=== PATIENT | female | born 1955 | race African-American/Black ===

== ENCOUNTER 2017-04-12 20:30 | Inpatient (IN) | payer MEDICAID ==
[2017-04-12] MEDS ORDERED: Maalox 30 mL Cup PO PRN (21:20)
[2017-04-12] MEDS ORDERED: Magnesium Hydroxide (MOM) 30 mL UDC PO PRN (21:20)
[2017-04-12] MEDS ORDERED: Morphine Sulfate 2 mg/mL 1mL Syr IVP PRN (21:30)
[2017-04-12 21:33] VITALS: BP 155/84
[2017-04-12 21:52] LABS: % BASOPHILS 1.3 % (0.0-2.0); % EOSINOPHILS 3.6 % (0.0-5.0); % LYMPHOCYTES 31.4 % (20.0-50.0); % MONOCYTES 9.4 % (2.0-10.0); % NEUTROPHILS 54.3 % (40.0-80.0); HEMATOCRIT 37.1 % (35.0-45.0); HEMOGLOBIN 12.5 gm/dL (11.7-15.5); MEAN CORPUSCULAR HGB CONC 33.8 pg (28.0-36.0); MEAN PLATELET VOLUME 9.1 fl; NEUTROPHILE ABSOLUTE 3.1 Th/cmm (1.8-8.0); PLATELET COUNT 199 Th/cmm (150-400); RED BLOOD COUNT 4.47 Mil/cmm (3.80-5.10); RED CELL DISTRIBUTION WIDTH 13.7 % (11.5-20.0); WHITE BLOOD COUNT 5.7 Th/cmm (4.8-10.8)
[2017-04-12 22:11] LABS: ALB/GLOB RATIO 1.3 (1.0-1.8); ALKALINE PHOSPHATASE 77 U/L (34-104); ANION GAP 6.5 (7.0-16.0); BILIRUBIN,TOTAL 0.3 mg/dL (0.3-1.0); BUN - UREA NITROGEN 14 mg/dL (7-25); CALCIUM SERUM 9.8 mg/dL (8.6-10.3); CARBON DIOXIDE 30.1 mEq/L (21.0-31.0); CHLORIDE 104 mEq/L (98-107); CHOLESTEROL 171 mg/dL (<200); CREATININE - SERUM 0.7 mg/dL (0.6-1.2); GLUCOSE 102 mg/dL (70-105); POTASSIUM SERUM 3.6 mEq/L (3.5-5.1); SGOT 20 U/L (13-39); SGPT/ALT 22 U/L (7-52); SODIUM SERUM 137 mEq/L (136-145); TRIGLYCERIDES 195 mg/dL (<150)
[2017-04-12 22:57] LABS: URINE BILIRUBIN NEGATIVE (NEGATIVE); URINE BLOOD TRACE (NEGATIVE); URINE COLOR YELLOW; URINE GLUCOSE (UA) NEGATIVE (NEGATIVE); URINE KETONE NEGATIVE (NEGATIVE); URINE PH 5.5; URINE PROTEIN NEGATIVE (NEGATIVE); URINE UROBILINOGEN 0.2 E.U./dL (0.2 - 1.0); URINE WBC 0-2 /hpf (0-5)
[2017-04-12 22:58] LABS: URINE BACTERIA FEW /hpf (NONE SEEN); URINE EPITHELIAL CELLS RARE /lpf (FEW)
[2017-04-12 23:01] LABS: AMPHETAMINE URINE NEGATIVE (NEGATIVE); BARBITURATES URINE NEGATIVE (NEGATIVE); METHADONE URINE NEGATIVE (NEGATIVE)
[2017-04-13] MEDS: Hydrocodone/APAP 10 mg/325 mg Tab PO PRN ×3 (02:51→23:42)
[2017-04-13 06:33] LABS: % BASOPHILS 0.4 % (0.0-2.0); % LYMPHOCYTES 27.1 % (20.0-50.0); % MONOCYTES 9.1 % (2.0-10.0); % NEUTROPHILS 59.4 % (40.0-80.0); HEMATOCRIT 37.5 % (35.0-45.0); HEMOGLOBIN 12.7 gm/dL (11.7-15.5); MEAN CELL VOLUME 83.6 fl (81-100); MEAN CORPUSCULAR HEMOGLOBIN 28.4 pg (27.0-31.0); MEAN CORPUSCULAR HGB CONC 33.9 pg (28.0-36.0); MEAN PLATELET VOLUME 9.7 fl; NEUTROPHILE ABSOLUTE 3.5 Th/cmm (1.8-8.0); PLATELET COUNT 208 Th/cmm (150-400); RED BLOOD COUNT 4.48 Mil/cmm (3.80-5.10); RED CELL DISTRIBUTION WIDTH 13.7 % (11.5-20.0); WHITE BLOOD COUNT 5.8 Th/cmm (4.8-10.8)
[2017-04-13 06:44] LABS: BUN - UREA NITROGEN 15 mg/dL (7-25); BUN/CREATININE RATIO 21.4; CALCIUM SERUM 9.9 mg/dL (8.6-10.3); CHLORIDE 102 mEq/L (98-107); CREATININE - SERUM 0.7 mg/dL (0.6-1.2); GLUCOSE 93 mg/dL (70-105); SODIUM SERUM 136 mEq/L (136-145)
[2017-04-13] MEDS: Enoxaparin 40 mg/0.4 mL 0.4mL Syr SUBQ SCH (09:02)
[2017-04-13] MEDS ORDERED: PSEUDOEPHEDRINE 120 MG PO SCH (13:30)
--- NOTE | 2017-04-13 15:54 | History & Physical ---
ADMIT DATE: 04/12/2017 HISTORY OF PRESENT ILLNESS: The patient is a transfer from [facility]. The patient presents to the ER of [facility] for elevated blood pressure. The patient states for the last 3-4 days with home wrist monitor, her blood pressure ranged from systolic 140s-200s. The patient also complains of left-sided chest pain with pain radiating down her arms and the patient also complains of headache. The patient also complains of heart beating very fast. No other complaints. PAST MEDICAL HISTORY: Elevated blood pressure with a diagnosis of hypertension and dyslipidemia. PAST SURGICAL HISTORY: section x 3, bunion surgery x 2 and laminectomy. ALLERGIES: CODEINE CAUSES NAUSEA AND SULFA CAUSES RASH. MEDICATIONS: See medication reconciliation form. SOCIAL HISTORY: The patient denies smoking, drinking or drug use. FAMILY HISTORY: Noncontributory. REVIEW OF SYSTEMS: See history of present illness. PHYSICAL EXAMINATION: GENERAL: The patient is awake, alert, nontoxic in appearance. VITAL SIGNS: On admission, temperature 98.8, pulse 72, blood 155/84, respiratory rate 18, O2 sat 96% on room air. GENERAL: The patient is awake, alert, nontoxic in appearance. HEENT: Normocephalic, atraumatic. Extraocular movements intact. Pupils reactive to light. Oropharynx clear. NECK: Supple, no thyromegaly. No lymphadenopathy. CARDIOVASCULAR: S1, S2. No murmurs, rubs, gallops. RESPIRATORY: Clear. No wheezes or rhonchi. GASTROINTESTINAL: Soft, nontender, nondistended. Positive bowel sounds. GENITOURINARY: No CVA tenderness. No suprapubic tenderness. BACK: No midline tenderness. EXTREMITIES: Equal pulses bilaterally. No cyanosis, clubbing or edema. SKIN: Negative. PSYCHIATRIC: Negative. NEUROLOGIC: Cranial nerves 2-12 intact. Extraocular movements intact. Sensation intact. Neurovascular intact. LABORATORY DATA: On admission are as follows: Hematology: WBC 5.7, hemoglobin 12.5, hematocrit 37.1, platelet count of 189, no left shift noted. Chemistry: Sodium is 137, potassium 3.6, chloride 104, bicarbonate 30, anion gap 6.5, BUN 14, creatinine 0.7, GFR is more than 60. Glucose is 102, calcium 9.8, total bili 0.3, AST 20, ALT 22, alk phos 77. Troponin is less than 0.01. Total protein 6.7, albumin 3.8, globulin 2.9. Liver panel: Triglycerides 195, cholesterol 171, LDL is 94, HDL 54, TSH 2.62. Urinalysis negative. Urine drug screen is positive for benzodiazepine. IMPRESSION: 1. Chest pain. 2. Rule out acute coronary syndrome. 3. Elevated blood pressure without diagnosis of hypertension. 4. Headache (probable sinus). 5. Hypertriglyceridemia. PLAN: The patient admitted to telemetry unit, seen by Dr. Emigdio Vidal. Cardiology consultation with Dr. Zabrina Vidal. Obtain further labs and consultation as needed. [facility]# [id number] MIGUEL A
--- NOTE | 2017-04-13 20:50 | Consultation ---
DATE OF CONSULTATION: 04/13/2017 HISTORY OF PRESENT ILLNESS: This patient is seen on courtesy of Dr. Emigdio Vidal as patient is coming with elevated blood pressure and some chest pain. She says that she started feeling just a heavy feeling in the chest and pumping very hard as if the heart was going to come out of the chest. She also felt palpitations, but they are very strong palpitations with strong heart beating. She felt that and then so checked the blood pressure, it was elevated at 200+ range. The patient has her own blood pressure checking instrument, but ____ only. However, as the patient checking that and it was noticed that the patient had elevated blood pressure and because of chest pain, transferred here. She said the chest pain was heavy feeling while she was feeling this high heart rate and radiating to no place. She felt some short of breath and a little bit lightheaded, but no loss of consciousness. No nausea, vomiting, cold sweats. It lasted for some time. Because she was concerned of the palpitation and chest pain, so came to the Emergency Room of [facility]. The initial workup was negative, heart rate also within normal range. EKG did not show any ST-T changes. Blood pressure was brought to control, but because of the chest pain, she needed further evaluation and workup. No further diagnostic workup. PAST MEDICAL HISTORY: Hypertension and dyslipidemia, has been controlled with the therapy. ALLERGIES: No known drug allergies. PERSONAL HISTORY: She is nonsmoker, nonalcoholic. No drug abuse. PHYSICAL EXAMINATION: GENERAL: The patient is a 61-year-old female, fully alert, oriented, conscious, well developed, well nourished, not in any acute distress now. VITAL SIGNS: Stable. Blood pressure is 126/61, heart rate is 82, respirations 20, temperature is normal ____ and O2 sat is 97-100% on 2 L nasal cannula. HEENT: Normal. NECK: Supple. JVP is flat. No lymphadenopathy. CHEST: Equal bilaterally. No chest wall tenderness. LUNGS: Clinically clear. CARDIOVASCULAR: PMI not palpable. Heart sounds are normal, no gallop, no murmur is present, only soft S4 is present at the apex. Otherwise, physical examination is essentially negative. IMPRESSION: 1.Hypertension, which is labile, now is better controlled. 2.Chest pain. Evaluate for acute coronary syndrome. 3.History of hypertension and hypertensive heart disease. 4.Dyslipidemia. Cardiac risk factors are female with hypertension and dyslipidemia. PLAN: I agree with present management. Continue with controlling blood pressure. Further management will be initiated as needed. I adjusted the therapy and the patient has been suggested to get the treadmill stress test once the blood pressure is better controlled. If any of the test is positive for myocardial ischemia ____ coronary artery disease, then further cardiac evaluation and workup will be considered. Further workup and management as needed. Thank you very much Dr. Bowman for your kind referral and I will follow along with you during her acute cardiac problem. JOB# [id number]
[2017-04-14 05:24] LABS: % BASOPHILS 0.3 % (0.0-2.0); % EOSINOPHILS 4.5 % (0.0-5.0); % LYMPHOCYTES 33.7 % (20.0-50.0); % NEUTROPHILS 51.5 % (40.0-80.0); HEMATOCRIT 38.2 % (35.0-45.0); HEMOGLOBIN 12.5 gm/dL (11.7-15.5); MEAN CELL VOLUME 84.2 fl (81-100); MEAN CORPUSCULAR HEMOGLOBIN 27.5 pg (27.0-31.0); MEAN CORPUSCULAR HGB CONC 32.6 pg (28.0-36.0); MEAN PLATELET VOLUME 9.7 fl; NEUTROPHILE ABSOLUTE 2.9 Th/cmm (1.8-8.0); PLATELET COUNT 198 Th/cmm (150-400); RED BLOOD COUNT 4.54 Mil/cmm (3.80-5.10); RED CELL DISTRIBUTION WIDTH 13.4 % (11.5-20.0); WHITE BLOOD COUNT 5.4 Th/cmm (4.8-10.8)
[2017-04-14 05:45] LABS: ANION GAP 8.3 (7.0-16.0); BUN - UREA NITROGEN 17 mg/dL (7-25); BUN/CREATININE RATIO 24.3; CALCIUM SERUM 9.9 mg/dL (8.6-10.3); CARBON DIOXIDE 31.7 mEq/L (21.0-31.0); CHLORIDE 103 mEq/L (98-107); CREATININE - SERUM 0.7 mg/dL (0.6-1.2); GLUCOSE 91 mg/dL (70-105); SODIUM SERUM 139 mEq/L (136-145)
[2017-04-14] MEDS: Hydrocodone/APAP 10 mg/325 mg Tab PO PRN (06:49)
[2017-04-14] MEDS: Enoxaparin 40 mg/0.4 mL 0.4mL Syr SUBQ SCH (08:14)
--- NOTE | 2017-04-30 14:54 | Discharge Summary ---
General Discharge Summary - Discharge Summary Admitting Diagnosis: see h&p Discharge Diagnosis: see last pn Laboratory Findings: Laboratory Tests 04/12/17 04/12/17 04/12/17 21:44 21:44 21:44 WBC 5.7 RBC 4.47 Hgb 12.5 Hct 37.1 MCV 83.0 MCH 28.0 MCHC Differential 33.8 RDW 13.7 Plt Count 199 MPV 9.1 Neutrophils % 54.3 Lymphocytes % 31.4 Monocytes % 9.4 Eosinophils % 3.6 Basophils % 1.3 Sodium 137 Potassium 3.6 Chloride 104 Carbon Dioxide 30.1 Anion Gap 6.5 L BUN 14 Creatinine 0.7 Est GFR ( Amer) > 60.0 Est GFR (Non-Af Amer) > 60.0 BUN/Creatinine Ratio 20.0 Glucose 102 Calcium 9.8 Total Bilirubin 0.3 AST 20 ALT 22 Alkaline Phosphatase 77 Troponin I < 0.01 L Total Protein 6.7 Albumin 3.8 Globulin 2.9 Albumin/Globulin Ratio 1.3 Triglycerides Cholesterol LDL Cholesterol Direct HDL Cholesterol TSH Urine Source Urine Color Urine Clarity Urine pH Ur Specific Spencer Urine Protein Urine Glucose (UA) Urine Ketones Urine Blood Urine Nitrate Urine Bilirubin Urine Urobilinogen Ur Leukocyte Esterase Urine RBC Urine WBC Ur Epithelial Cells Urine Bacteria Urine Opiates Screen Urine Methadone Screen Ur Barbiturates Screen Ur Tricyclics Screen Ur Phencyclidine Scrn Amphetamines Screen U Methamphetamines Scrn U Benzodiazepines Scrn U Cocaine Metab Screen U Cannabinoids Screen 04/12/17 04/12/17 04/12/17 21:44 21:44 22:15 WBC RBC Hgb Hct MCV MCH MCHC Differential RDW Plt Count MPV Neutrophils % Lymphocytes % Monocytes % Eosinophils % Basophils % Sodium Potassium Chloride Carbon Dioxide Anion Gap BUN Creatinine Est GFR ( Amer) Est GFR (Non-Af Amer) BUN/Creatinine Ratio Glucose Calcium Total Bilirubin AST ALT Alkaline Phosphatase Troponin I Total Protein Albumin Globulin Albumin/Globulin Ratio Triglycerides 195 H Cholesterol 171 LDL Cholesterol Direct 94 HDL Cholesterol 54 TSH 2.62 Urine Source CATH Urine Color YELLOW Urine Clarity CLEAR Urine pH 5.5 Ur Specific Spencer 1.020 Urine Protein NEGATIVE Urine Glucose (UA) NEGATIVE Urine Ketones NEGATIVE Urine Blood TRACE Urine Nitrate NEGATIVE Urine Bilirubin NEGATIVE Urine Urobilinogen 0.2 Ur Leukocyte Esterase NEGATIVE Urine RBC 2-5 Urine WBC 0-2 Ur Epithelial Cells RARE Urine Bacteria FEW Urine Opiates Screen Urine Methadone Screen Ur Barbiturates Screen Ur Tricyclics Screen Ur Phencyclidine Scrn Amphetamines Screen U Methamphetamines Scrn U Benzodiazepines Scrn U Cocaine Metab Screen U Cannabinoids Screen 04/12/17 04/13/17 04/13/17 22:15 05:51 05:51 WBC 5.8 RBC 4.48 Hgb 12.7 Hct 37.5 MCV 83.6 MCH 28.4 MCHC Differential 33.9 RDW 13.7 Plt Count 208 MPV 9.7 Neutrophils % 59.4 Lymphocytes % 27.1 Monocytes % 9.1 Eosinophils % 4.0 Basophils % 0.4 Sodium 136 Potassium 4.0 Chloride 102 Carbon Dioxide 32.0 H Anion Gap 6.0 L BUN 15 Creatinine 0.7 Est GFR ( Amer) > 60.0 Est GFR (Non-Af Amer) > 60.0 BUN/Creatinine Ratio 21.4 Glucose 93 Calcium 9.9 Total Bilirubin AST ALT Alkaline Phosphatase Troponin I Total Protein Albumin Globulin Albumin/Globulin Ratio Triglycerides Cholesterol LDL Cholesterol Direct HDL Cholesterol TSH Urine Source Urine Color Urine Clarity Urine pH Ur Specific Spencer Urine Protein Urine Glucose (UA) Urine Ketones Urine Blood Urine Nitrate Urine Bilirubin Urine Urobilinogen Ur Leukocyte Esterase Urine RBC Urine WBC Ur Epithelial Cells Urine Bacteria Urine Opiates Screen NEGATIVE Urine Methadone Screen NEGATIVE Ur Barbiturates Screen NEGATIVE Ur Tricyclics Screen NEGATIVE Ur Phencyclidine Scrn NEGATIVE Amphetamines Screen NEGATIVE U Methamphetamines Scrn NEGATIVE U Benzodiazepines Scrn POSITIVE H U Cocaine Metab Screen NEGATIVE U Cannabinoids Screen NEGATIVE 04/13/17 04/13/17 04/14/17 05:51 13:45 04:36 WBC 5.4 RBC 4.54 Hgb 12.5 Hct 38.2 MCV 84.2 MCH 27.5 MCHC Differential 32.6 RDW 13.4 Plt Count 198 MPV 9.7 Neutrophils % 51.5 Lymphocytes % 33.7 Monocytes % 10.0 Eosinophils % 4.5 Basophils % 0.3 Sodium Potassium Chloride Carbon Dioxide Anion Gap BUN Creatinine Est GFR ( Amer) Est GFR (Non-Af Amer) BUN/Creatinine Ratio Glucose Calcium Total Bilirubin AST ALT Alkaline Phosphatase Troponin I < 0.01 L 0.01 Total Protein Albumin Globulin Albumin/Globulin Ratio Triglycerides Cholesterol LDL Cholesterol Direct HDL Cholesterol TSH Urine Source Urine Color Urine Clarity Urine pH Ur Specific Spencer Urine Protein Urine Glucose (UA) Urine Ketones Urine Blood Urine Nitrate Urine Bilirubin Urine Urobilinogen Ur Leukocyte Esterase Urine RBC Urine WBC Ur Epithelial Cells Urine Bacteria Urine Opiates Screen Urine Methadone Screen Ur Barbiturates Screen Ur Tricyclics Screen Ur Phencyclidine Scrn Amphetamines Screen U Methamphetamines Scrn U Benzodiazepines Scrn U Cocaine Metab Screen U Cannabinoids Screen 04/14/17 04:36 WBC RBC Hgb Hct MCV MCH MCHC Differential RDW Plt Count MPV Neutrophils % Lymphocytes % Monocytes % Eosinophils % Basophils % Sodium 139 Potassium 4.0 Chloride 103 Carbon Dioxide 31.7 H Anion Gap 8.3 BUN 17 Creatinine 0.7 Est GFR ( Amer) > 60.0 Est GFR (Non-Af Amer) > 60.0 BUN/Creatinine Ratio 24.3 Glucose 91 Calcium 9.9 Total Bilirubin AST ALT Alkaline Phosphatase Troponin I Total Protein Albumin Globulin Albumin/Globulin Ratio Triglycerides Cholesterol LDL Cholesterol Direct HDL Cholesterol TSH Urine Source Urine Color Urine Clarity Urine pH Ur Specific Spencer Urine Protein Urine Glucose (UA) Urine Ketones Urine Blood Urine Nitrate Urine Bilirubin Urine Urobilinogen Ur Leukocyte Esterase Urine RBC Urine WBC Ur Epithelial Cells Urine Bacteria Urine Opiates Screen Urine Methadone Screen Ur Barbiturates Screen Ur Tricyclics Screen Ur Phencyclidine Scrn Amphetamines Screen U Methamphetamines Scrn U Benzodiazepines Scrn U Cocaine Metab Screen U Cannabinoids Screen Hospital Course: telemetry serial cardiac enzymes echo cardiology consult Treatment: see chart Disposition: PT DISCHARGED HOME Home Medications: Home Medication Medication Instructions Recorded Type Alprazolam [Xanax Xr] 1 mg PO Q4HR PRN 04/12/17 History Aspirin EC [Ecotrin] 81 mg PO DAILY 04/12/17 History Atorvastatin Calcium [Lipitor] 10 mg PO DAILY 04/12/17 History Biotin [Eric Biotin] 10,000 mcg PO DAILY 04/12/17 History Cholecalciferol (Vitamin D3) 2,000 unit PO 04/12/17 History [D3-2000] Diclofenac Sodium 75 mg PO BID PRN 04/12/17 History Ginkgo Biloba 120 mg PO DAILY 04/12/17 History Lansoprazole [Prevacid] 20 mg PO AC 04/12/17 History Loratadine [Claritin] 10 mg PO HS 04/12/17 History Methocarbamol 500 mg PO BID 04/12/17 History Venlafaxine HCl [Venlafaxine HCl] 150 mg PO DAILY 04/12/17 History Discharge Diet: Cardiac Consults and Follow-Up: Colby Vidal [Primary Care Provider] - Consulting Speciality: Cardiac Instructions: Cardiac Diet, [id number], Chest Pain Observation, Chest Wall Pain
== END 2017-04-14 21:45 | disposition home or self-care (01) | DRG 199 ==
LOC: TELE 20:30
PROVIDERS: ADMIT Preventive Medicine Preventive Medicine/Occupational Environmental Medicine; ATTEND Preventive Medicine Preventive Medicine/Occupational Environmental Medicine
DX: I11.9 Hypertensive heart disease without heart failure (principal); Z68.43 Body mass index [BMI] 50.0-59.9, adult; E78.1 Pure hyperglyceridemia; R07.9 Chest pain, unspecified; R51 Headache; E78.5 Hyperlipidemia, unspecified; R00.2 Palpitations; Z88.5 Allergy status to narcotic agent; Z88.2 Allergy status to sulfonamides; Z98.891 History of uterine scar from previous surgery; E66.01 Morbid (severe) obesity due to excess calories
CPT/HCPCS: 36415-UA; 80048-TC; 80053-TC; 80061-TC; 80307; 81001-TC; 84443-TC; 84484-TC; 85025-TC; 93005; J1650; J2270